=== PATIENT | male | born 1955 | race Caucasian/White ===

== ENCOUNTER 2017-07-28 20:40 | Emergency (ER) | payer OTHER ==
[2017-07-28] MEDS ORDERED: Adacel (T-DAP) 0.5 ML VIAL ONE (21:07)
== END 2017-07-28 21:10 | disposition home or self-care (01) ==
LOC: BURERS 20:40
DX: S61.411A Laceration without foreign body of right hand, initial encounter (principal); Z23 Encounter for immunization; W25.XXXA Contact with sharp glass, initial encounter
CPT/HCPCS: 12001; 90471; 90715